=== PATIENT | male | born 1950 | race Caucasian/White ===

== ENCOUNTER 2018-01-20 02:05 | Inpatient (IN) | payer OTHER ==
[~2018-01-20] VITALS: Ht 175.3 cm; Wt 102.1 kg
[~2018-01-20 02:05] MED LIST: AMLODIPINE BESYL5 M1 PO; ATIVAN0.5 M1 PO; HYDROCHLOROTHIA25 M1 PO; LISINOPRIL40 M1 PO; METAMUCIL FIBE3.4 GM; PANTOPRAZOLE SO40 M1 PO; ST. JOSEPH ASPI81 M1 PO; ZOCOR40 M1 PO; ZOLPIDEM TARTRA10 M1 PO
--- NOTE | 2018-01-20 07:59 | Operative Report ---
Operative/Inv Procedure Report Surgery Date: 01/20/18 Name of Procedure: 1. L3, L4 pars osteotomies for deformity correction 2. resection of left L3/4, L4/5 synovial cysts 3. L3/4, L4/5 TLIF with tritanium interbody cages, autograft, ICBM aspirate 4. L3, L4, L5 segmental posterolateral arthrodesis with albertina parham pedicle screws, rods, autograft, ICBM aspirate 5. O-arm navigation 6. right ICBM aspirate Pre-Operative Diagnosis: L3/4, L4/5 spondylolisthesis, stenosis, synovial cysts Post-Operative Diagnosis: same Estimated Blood Loss: 1250cc Surgeon/Floor Representative: Graham CHAMBERLAIN,Manuel Jean-Baptiste MD Anesthesia: general endotracheal tube Monitors: neurophysiologic monitoring IV Fluids: 2L crystalloid, 1L colloid Implants: styker tritanium cages, parham pedicle screws/rods Urine Output: 930cc via malone Drains: med HV Specimens: l3/4, L4/5 synovial cysts, disc material Complications: none Condition: stable Operative Indication: 67yo male with intractable lumbar claudication and imaging c/w spondylolisthesis and stenosis L3/4, L4/5 with left L3/4 synovial cyst now presents for surgical decompression and instrumented fusion after failed conservative treatment. Operative/Procedure Note Note: Patient was taken the operating room. After appropriate patient identification and surgical timeout, neurophysiologic monitoring leads were placed and baseline recordings were obtained. The patient then underwent the smooth induction of general endotracheal anesthesia without incident. Following intubation monitoring was stable. A Malone catheter was sterilely inserted. DVT prophylaxis was utilized throughout the case. Patient was given 2 g of IV kefzol in Preoperative Prophylaxis. With All Tubes and Lines Secured, the Patient Was Carefully Turned to the Prone Position on the Pascual Frame Taking Care to Ensure That All Pressure Points Were Well-Padded. Monitoring Was Stable Following the Turn.The Low Back Was Widely Prepped and Draped Usual Sterile Fashion Using Probe Iodine Solution. A Vertical Midline Skin Incision Was Marked from L3 to L5 and Infiltrated with 10 ML of Local Anesthetic. Skin incision was made with a 10 blade knife. Dissection was carried down through subcutaneous tissue with the Bovie to the lumbodorsal fascia. The fascia was incised and a subperiosteal dissection of the lumbar paravertebral muscles was performed exposing the underlying spinous processes lamina and facets from L3 to L5 bilaterally and self-retaining retractors were placed beneath the muscle. A Essex 4 elevator was placed under the presumed L4 pars and intraoperative lateral lumbar x-rays obtained to confirm the correct level. With the correct level verified, we then proceeded to expose the transverse processes from L3 to L5 were decorticated with a high-speed drill. The joints were noted to be markedly hypertrophic. Syovial cyst off the dorsal medial left L4/5 facet was resected and sent for pathology. We then focused our attention to the decompression. A complete laminectomy from L3 to L5 was completed using a combination of the bone scalpel, small straight and angled curettes and Kerrison rongeurs. Thickened ligamentum flavum was gently elevated and resected allowing excellent decompression of the thecal sac. Synovial cysts off the medial L3/4, L4/5 left facets were carefully resected from the dura and passed off as specimen. Bilateral pars osteotomies were then performed at L3, L4 using combination the bone scalpel and a Kerrison rongeurs and total facetectomies were completed. All bone was saved and passed to the back table for subsequent arthrodesis. Pedicles were skeletonized at L3, L4, L5 , bilaterally and the exiting and traversing roots were widely decompressed on both sides. We then focused our attention to the discectomies. Using a far lateral approach , discectomies were completed at L3/4 and L4/5 from the patient's left side. The dural sac was gently mobilized to the midline, the underlying disc annulus was coagulated with a bipolar and incised in a rectangular fashion with an 11 blade knife and discectomies were completed with small straight and angled curettes pituitary rongeurs disc space cherelle and rasps until all the cartilaginous endplates were removed at both evels. 20 mL of right iliac crest bone marrow aspirate was then taken via a Jamshidi needle and added to the morcellated autograft. We next focused our attention to the interbody arthrodesis. At L4 5, a 11 x 28 x 11 by 6 degree lordotic titanium cage was also selected after appropriate trials and packed with morcellated autograft. Morcellated autograft was packed into the anterior disc space and The L4 5 cage was then gently tamped into the interspace under direct visualization and countersunk by several millimeters and its position also confirmed and noted to be excellent. At L3 4, a 11 x 28 x 11 mm by 6 degree titanium cage was selected and packed with morcellated autograft. autograft were carefully packed into the anterior aspect of the L3 4 disc space followed by the cage was gently tamped into the interspace and countersunk by 2 or 3 mm and its final position confirmed and noted to be excellent. With cages in position, we then proceeded to the posterior lateral arthrodesis. The O arm reference arc was then fixed to the right iliac crest did AP and lateral x-rays were obtained with the O arm followed by a spin. Reconstructions were completed and confirmed. We then used live navigation to place all of the posterior lateral hardware. Prior to placing the pedicle screw instrumentation, bone graft moistened with iliac crest bone marrow aspirate was packed over the transverse processes from L3 to L5 bilaterally. Entry points for 911 [employer] xia3 pedicle screws were selected using the O arm at the junction of the pars interarticularis transverse process and inferomedial aspect of the rostral facet. All screws were placed by piercing the bone with the drill, traversing the pedicle with a gearshift under the hole with a ball- tipped probe, and screw placed with power. We began at L3. 6.5 x 50 mm screw was placed bilaterally. At L4, 6.5 x 50 mm screws were placed bilaterally, at L5, 6.5 x 50 mm screws were placed bilaterally. Once all screws were in position, they were stimulated with thresholds greater than 30 mA at all locations. With all the screws in position, we then obtained a second spin of the O arm and completed the reconstructions to ensure good hardware positioning. All cages were in excellent position. With all screws in position, we then top loaded 60 mm titanium rods bilaterally and locking caps were placed. Screws were then finally tightened using antitorque device. Was copiously irrigated with bacitracin and sterile saline irrigation. Epidural bleeding was controlled using FloSeal, Surgifoam and cottonoid patties and points of muscle bleeding were controlled with the bipolar electrocautery. A medium Hemovac drain was placed into the wound and secured to the skin with a 2- 0 nylon suture. 1 g of vancomycin powder was gently used to cover the cut muscle and soft tissue surfaces in the wound and we then began closure. 10 mL of long-acting local anesthetic was placed in the paraspinal muscle. Deep muscle was reapproximated with interrupted 0 Vicryl suture. Subcutaneous tissue was closed in layers with interrupted oh and 2-0 Vicryl suture. The skin was closed with keiry. The wounds were cleaned and dried. Bacitracin and sterile occlusive dressings were placed. The reference arc was removed from the right iliac crest. That wound was irrigated, closed in layers in the subcutaneous tissue with Vicryl suture and keiry in the skin. It was cleaned and dried and a sterile occlusive dressing was placed. At the completion of the case, all sponge needle and injuring counts were correct at the completion of the procedure 3. Neurophysiologic monitoring was stable throughout the case. Patient was returned to the supine position, awakened extubated and taken to PACU in stable Findings: left L3/4, L4/5 syonvial cysts, hypertrophic facet disease bilaterally Discharge Disposition: PACU
--- NOTE | 2018-01-20 09:56 | RADIOLOGY REPORT ---
EXAMINATION: XR LUMBAR SPINE CLINICAL INFORMATION: L3-L4, 4, 5 PLIF COMPARISON: 11/26/2017 TECHNIQUE: Intraoperative cross table lateral image provided for interpretation FINDINGS: A single crosstable lateral view of the spine demonstrate a metallic instrument pointing at the L4 vertebral body at the level of the inferior pedicle. Radiopaque gauze and skin spreaders are also identified. A rectangular radiopaque marker is also seen at the level of the L3 vertebral body projecting over the spinous processes. IMPRESSION: Linear metallic indicator is at the level of L4. Refer to operative notes for details.
--- NOTE | 2018-01-20 10:15 | RADIOLOGY REPORT ---
EXAMINATION: XR LUMBAR SPINE CLINICAL INFORMATION: L3/L4, 4, 5 TLIF COMPARISON: 11/26/2017 TECHNIQUE: Intraoperative cross table lateral image FINDINGS: A needle indicates the L4 vertebral body level and is interposed between the L3 and L4 spinous processes. There is a coarse radiodensity seen projecting over the spinous process of the L4 vertebral body which appears artifactual. IMPRESSION: 1. Needle indicator is pointing at the L4 vertebral body interposed between the L3 and L4 spinous processes. 2. Coarse radiodensity projects over the spinous process at L4 which appears to be artifactual. This radiodensity was also seen on the second image performed for the same surgery and appears identical in its appearance but changed in where it overlaps with the patient's anatomy, supporting this to be an artifact although this is not a certainty. This was brought to the attention of Dr. Stevenson at 10:10 AM on 01/20/2018.
--- NOTE | 2018-01-20 12:55 | Operative Report ---
Operative/Inv Procedure Report Surgery Date: 01/20/18 Name of Procedure: L34, L45 laminectomies for resection of synovial cysts. L3 4 L4 5 bilateral osteotomies bilateral complete foraminotomies. L3 4 TLIF. L4 5 TLIF. Insertion of L3 4 interbody 11 by 28 mm titanium cage. Insertion of L4 5 11 x 28 mm interbody titanium cage. L3 4 L4 5 posterior lateral arthrodesis utilizing autologous bone graft and iliac crest graft aspirate. L3 4 L4 5 posterior lateral arthrodesis utilizing lexus titanium segmental instrumentation. Stereotactic. Pre-Operative Diagnosis: L3 4 L4 5 synovial cyst degenerative spondylolisthesis spondylosis. Post-Operative Diagnosis: Same Estimated Blood Loss: 2000cc Surgeon/Hydroelectric Systems Technician: Manuel Moya M.D. and Kirsten Stevenson MD Anesthesia: general endotracheal tube Operative/Procedure Note Note: Patient was brought into the operating room and after undergoing endotracheal intubation Estrella catheterization Venodyne's were placed over both lower extremities. The procedure was performed with electrophysiological monitoring with the technicians room throughout the case. The patient was placed prone on an OSI table with all bony prominences well-padded. The back was washed with alcohol and Betadine reprepped again with DuraPrep solution draped in usual sterile fashion. An incision was made in the L3 and the L5 vertebral developed down through the underlying subcutaneous teeniest tissues the paraspinal muscles were mobilized out lateral to the level of the transverse processes. X-ray was used for confirmation. Working with a [employer]'s bone scalpel the L3-L4 and L4- L5 were removed. Care was taken us to peeled the synovial cyst that were present on the left side carefully off the dura 4 and L4 5. The lamina were now opened completely by performing osteotomies at L3 4 and L4 5 bilaterally. The bone harvested was morcellized and used for the arthrodesis. There was a quite a pronounced the epidural bleeding from the plexus of veins which required continuous hemostasis with bipolar cautery. The disc space was entered at the L4 5 with an 11 blade and was removed with a combination of straight and curved rongeurs and straight and curved curettes. The cartilaginous endplates were removed and the bony end plates were partially decorticated. Through separate incision over the iliac crest the iliac crest aspirate was now combined with the autologous bone graft was morcellized and now that mixture was packed into the interspace at the L4 5 level. Additionally bone graft was packed centrally into an 11 x 28 mm titanium cage by Lexus. At cage was tapped across the midline at the L4 5 protect the dura during the process. The L3 4 disc was similarly entered with 11 blade and removed a combination of straight and curved rongeurs and straight and curved curettes. Cartilaginous endplates were partially removed and the bony endplates were decorticated. Bone graft was packed into the interspace at the L3 4 level. The transverse processes at L3-L4 and L5 were now decorticated posterolaterally. Bone graft was packed over the decorticated surfaces been the L3 to the L5 space. A post was placed into the iliac crest and the stereotactic coordinates were obtained utilizing the O arm. Under stereotactic guidance the pedicles were accessed at L3 L4 L5 with Lexus titanium screws 6.5 mm diameter 50 mm in length. Pedicle screws were now stimulated and found to stimulate above 40 mA. Copious amounts of bacitracin irrigation were used. Vancomycin powder was placed in the wound and the paraspinal muscles were closed utilizing interrupted 0 Vicryls. A round drain was placed epidurally and removed through separate stab incision superiorly. The fascia was reapproximated utilizing interrupted 0 Vicryls. 2-0 Vicryl's were utilized for the subcutaneous tissues and keiry for the skin. Patient was taken to the recovery room extubated having tolerated procedure well.
[2018-01-20 15:07] LABS: ABSOLUTE BASOPHIL COUNT 0 /CUMM (0.0-0.2); ABSOLUTE EOSINOPHIL COUNT 0 /CUMM (0.0-0.7); ABSOLUTE GRANULOCYTE CT 10.2 /CUMM (1.4-6.5); ABSOLUTE LYMPH COUNT 0.5 /CUMM (1.2-3.4); ABSOLUTE MONOCYTE COUNT 0.3 /CUMM (0.10-0.60); BASOPHIL % 0 % (0.0-2.0); EOSINOPHIL % 0 % (0-5); GRANULOCYTE % 93.2 % (42.2-75.2); MEAN CORPUSCULAR HGB 31.8 PG (27.0-31.0); MEAN CORPUSCULAR HGB CONC 34.8 G/DL (33.0-37.0); MEAN CORPUSCULAR VOLUME 91.3 FL (80.0-94.0); MEAN PLATELET VOLUME 7.2 FL (7.4-10.4); PLATELET COUNT 258 /CUMM (130-400); RBC DISTRIBUTION WIDTH 12.8 % (11.5-14.5)
--- NOTE | 2018-01-20 15:45 | RADIOLOGY REPORT ---
EXAMINATION: CR LUMBAR SPINE/INTRAOPERATIVE FLUOROSCOPY CLINICAL INDICATION: L3-4 and L4-5 fusion. COMPARISON: Lumbar spine films dated 01/20/2018 and 11/26/2017. TECHNIQUE/FINDINGS: Fluoroscopic O arm equipment was dedicated to the operating room for the performance of an intraoperative procedure. 2 cine fluoroscopy runs were acquired and are archived in PACS. Please refer to operative notes for procedural detail. FLUOROSCOPY TIME: 5.92 seconds. IMPRESSION: Administrative dictation for intraoperative fluoroscopy and image archiving in PACS. Please refer to operative notes for details.
--- NOTE | 2018-01-20 17:12 | PN- Neurosurgical ---
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 Denies nausea denies paresthesias no CP/SOB/GRIFFIN or dizziness Objective Vital Signs and I&Os HR- 110-120's O2 sat 94-96 on room air Physical Exam: gen- NAD resp- clear cardiac- rrr abd-soft, nt ext- distal sensory and motor function intact. 2+ pt pulse bilat back- dressing with minimal drainage. drain in palce with sang drainage. output- 440cc since out of OR Current Medications: Current Medications Sig/Arpan Start time Last Medication Dose Route Stop Time Status Admin Acetaminophen 650 MG Q4P PRN 01/20 1323 AC PO Acetaminophen 1,000 MG .STK-MED ONE 01/20 0659 DC IV 01/20 07 Albumin Human 25 GM .STK-MED ONE 01/20 1149 DC IV 01/20 1150 Albumin Human 25 GM .STK-MED ONE 01/20 1100 DC IV 01/20 1101 Bisacodyl 10 MG DAILY NEEDED PRN 01/20 1323 AC WY Cefazolin Sodium 2 GM IQ8 01/20 1600 AC N/A 1 UNIT IV 01/23 0829 Cefazolin Sodium 2,000 MG ONCE 01/20 0000 NR IV 01/20 2359 Diazepam 5 MG Q8P PRN 01/20 1323 AC PO Docusate Sodium 100 MG TID 01/20 1400 AC PO Fentanyl Citrate 200 MCG .STK-MED ONE 01/20 07 DC IM 01/20 07 Heparin Sodium 5,000 UNIT Q8 01/21 0600 AC (Porcine) SC Hydromorphone HCl 50 MG Q24H PRN 01/20 1330 AC Sodium Chloride 45 ML IV Hydromorphone HCl 2 MG Q4-6 PRN PRN 01/20 1323 AC PO Hydromorphone HCl 2 MG .STK-MED ONE 01/20 0659 DC IM 01/20 07 Ketamine HCl 50 MG .STK-MED ONE 01/20 07 DC IM 01/20 07 Ketorolac 15 MG Q8P PRN 01/20 1323 DC Tromethamine IV 01/25 1322 Ketorolac 15 MG Q6P PRN 01/20 1323 AC Tromethamine IV 01/25 1322 Midazolam HCl 4 MG .STK-MED ONE 01/20 700 DC IM 01/20 701 Ondansetron HCl 4 MG Q6P PRN 01/20 132 AC IV Oxycodone/ 1 TAB Q4P PRN 01/20 1323 AC Acetaminophen PO Oxycodone/ 2 TAB Q4P PRN 01/20 132 AC Acetaminophen PO Remifentanil 5 MG .STK-MED ONE 01/20 700 DC IV 01/20 701 Senna 374 MG 2100 PRN 01/20 132 AC PO Sodium Chloride 1,000 ML Q10H 01/20 132 AC IV 01/21 09 Trimethobenzamide HCl 200 MG Q6P PRN 01/20 132 AC IM Zolpidem Tartrate 2.5 MG AT BEDTIME NEED.. 01/20 1323 AC PO Results Last 48 Hours of Labs: Laboratory Tests 01/20 1500 Hematology CBC w Diff MAN DIFF ORDERED WBC (4.8 - 10.8 /CUMM) 11.0 H RBC (4.70 - 6.10 /CUMM) 3.40 L Hgb (14.0 - 18.0 G/DL) 10.8 L Hct (42 - 52 %) 31.0 L MCV (80.0 - 94.0 FL) 91.3 MCH (27.0 - 31.0 PG) 31.8 H MCHC (33.0 - 37.0 G/DL) 34.8 RDW (11.5 - 14.5 %) 12.8 Plt Count (130 - 400 /CUMM) 258 MPV (7.4 - 10.4 FL) 7.2 L Gran % (42.2 - 75.2 %) 93.2 H Lymphocytes % (20.5 - 51.1 %) 4.4 L Monocytes % (1.7 - 9.3 %) 2.4 Eosinophils % (0 - 5 %) 0 Basophils % (0.0 - 2.0 %) 0 Absolute Granulocytes (1.4 - 6.5 /CUMM) 10.2 H Absolute Lymphocytes (1.2 - 3.4 /CUMM) 0.5 L Absolute Monocytes (0.10 - 0.60 /CUMM) 0.3 Absolute Eosinophils (0.0 - 0.7 /CUMM) 0 Absolute Basophils (0.0 - 0.2 /CUMM) 0 Platelet Estimate (ADEQUATE) ADEQUATE Anisocytosis 1+ Assessment/Plan Assessment/Plan 67yo M SP L3-L5 instumented TLIF pod0. Tachycardic mostly likely due to acute blood loss anemia as intra-op EBL was 1250 and drain output since being is PACU is 440cc. Cont IVF overnight monitor strict I's and O's Follow-up AM crit reg diet regular home meds ABX until hemovac is removed pain management- dilaudid test lead dvt ppx- alps and hsq malone likely to come out in AM Dr. Stevenson agrees with the above plan Core Measures Venous Thromboembolism VTE Risk Factors Surgery No Mechanical VTE Prophylaxis d/t N/A MechProphylax Ordered No VTE Pharm Prophylaxis d/t NA PharmProphylax ordered
[2018-01-20 17:45] VITALS: BP 140/78
[2018-01-20 20:00] VITALS: BP 140/80
[2018-01-20 22:00] VITALS: BP 138/76
[2018-01-20 22:09] VITALS: BP 138/76
[2018-01-20 22:45] VITALS: BP 138/76
[2018-01-21 00:06] VITALS: BP 124/84
[2018-01-21 03:38] VITALS: BP 132/78
--- NOTE | 2018-01-21 07:45 | PN- Neurosurgical ---
Subjective Subjective: No acute overnight events reported. Vital signs noted by myself and Dr. Stevenson. Incisional pain reported, responds to toradol, pt tolerates percocet. No c/o chest pain, shortness of breath and difficulty breathing. No nausea or vomitting. Has malone catheter in place. Objective Vital Signs and I&Os Vital Signs Date Time Temp Pulse Resp B/P B/P Pulse O2 O2 Flow FiO2 Mean Ox Delivery Rate 01/21 0338 98.2 89 20 132/78 96 Room Air 01/21 0006 97.9 89 20 124/84 95 Nasal 2.0L Cannula 01/21 0000 Nasal 2.0L Cannula 01/20 2245 98.7 94 18 138/76 01/20 2209 97.8 94 20 138/76 97 Nasal 2.0L Cannula 01/20 2200 98.7 94 18 138/76 01/20 2125 Nasal 2.0L Cannula 01/21 2000 97.8 110 20 140/80 01/21 2000 97.8 110 18 140/80 97 Nasal 2.0L Cannula 01/20 1745 97.9 112 18 140/78 01/20 1732 Nasal 3.0L Cannula Intake & Output 01/21 0800 01/21 0000 01/20 1600 01/20 0800 01/20 0000 01/19 1600 Intake Total 1040 760 Output Total 410 540 Balance 630 220 Intake, IV 800 400 Intake, Oral 240 360 Output, 160 190 Drainage Output, Urine 250 350 Patient 225 lb Weight Weight Reported by Patient Measurement Method Physical Exam: General: Alert and oriented x3, no acute distress Cards: Sinus tach Pulm: C T A bialterally, non-labored respiratory effort Abd: Non-tender, non-distended Extremities: Moves all extremities, neurovascular status grossly intact. 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 Stevenson Core Measures Venous Thromboembolism VTE Risk Factors Surgery No Mechanical VTE Prophylaxis d/t N/A MechProphylax Ordered No VTE Pharm Prophylaxis d/t NA PharmProphylax ordered
[2018-01-21 08:39] LABS: ABSOLUTE BASOPHIL COUNT 0 /CUMM (0.0-0.2); ABSOLUTE EOSINOPHIL COUNT 0 /CUMM (0.0-0.7); ABSOLUTE GRANULOCYTE CT 7.5 /CUMM (1.4-6.5); ABSOLUTE LYMPH COUNT 1.2 /CUMM (1.2-3.4); ABSOLUTE MONOCYTE COUNT 0.8 /CUMM (0.10-0.60); BASOPHIL % 0.3 % (0.0-2.0); EOSINOPHIL % 0.1 % (0-5); GRANULOCYTE % 78.8 % (42.2-75.2); MEAN CORPUSCULAR HGB 32.1 PG (27.0-31.0); MEAN CORPUSCULAR HGB CONC 34.8 G/DL (33.0-37.0); MEAN CORPUSCULAR VOLUME 92.2 FL (80.0-94.0); MEAN PLATELET VOLUME 7.7 FL (7.4-10.4); PLATELET COUNT 224 /CUMM (130-400); RED BLOOD CELL CT 2.72 /CUMM (4.70-6.10); WHITE BLOOD CELL COUNT 9.5 /CUMM (4.8-10.8)
[2018-01-21 09:15] LABS: HEMATOCRIT 25.1 % (42-52)
[2018-01-21 12:36] VITALS: BP 130/85
--- NOTE | 2018-01-21 12:58 | Admission Core Measures ---
Acute Coronary Syndrome (CM) ACS Core Measures Acute Coronary Syndrome Diagnosis No Congestive Heart Failure (NEW) CHF Core Measures Congestive Heart Failure Diagnosis No Cerebrovascular Accident CVA Core Measures CVA/TIA Diagnosis No Venous Thromboembolism VTE Core Carlo (View Protocol) VTE Risk Factors Surgery No Mechanical VTE Prophylaxis d/t N/A MechProphylax Ordered No VTE Pharm Prophylaxis d/t NA PharmProphylax ordered Problem List As ranked by this Provider includes Assessment & Plan 1. Spondylolisthesis of lumbar region 2. Spinal stenosis of lumbar region HOME MEDS Home Med List Amlodipine Besylate 5 MG TABLET 1 TAB PO DAILY BP (Reported) Aspirin ([place] Aspirin) 81 MG TABLET.DR 1 TAB PO DAILY HEART HEALTH ( Reported) Hydrochlorothiazide 25 MG TABLET 1 TAB PO DAILY BP (Reported) Lisinopril 40 MG TABLET 1 TAB PO DAILY BP (Reported) Lorazepam (Ativan) 0.5 MG TABLET 1 TAB PO DAILY NEEDED ANXIETY (Reported) Pantoprazole Sodium 40 MG TABLET.DR 1 TAB PO DAILY GERD (Reported) Simvastatin (Zocor*) 40 MG TABLET 1 TAB PO DAILY CHOLESTEROL (Reported) Zolpidem Tartrate 10 MG TABLET 1 TAB PO QPMP SLEEP (Reported)
--- NOTE | 2018-01-21 13:05 | Surgical Discharge Summary ---
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 Home Who Do You Live With? Spouse What is Your Primary Language? Estonian Review of Systems: see hpi Hospital Course Course Attending Physician: Graham CHAMBERLAIN,Kirsten Montes Primary Care Physician: Cinthia CHAMBERLAIN,Selvin Grissom Hospital Course: Name of Procedure: 1. L3, L4 pars osteotomies for deformity correction 2. resection of left L3/4, L4/5 synovial cysts 3. L3/4, L4/5 TLIF with tritanium interbody cages, autograft, ICBM aspirate 4. L3, L4, L5 segmental posterolateral arthrodesis with albertina parham pedicle screws, rods, autograft, ICBM aspirate 5. O-arm navigation 6. right ICBM aspirate Pre-Operative Diagnosis: L3/4, L4/5 spondylolisthesis, stenosis, synovial cysts Patient underwent the above-mentioned procedure without complications. Postoperatively he suffered from mild acute blood loss anemia but did not become symptomatic and did not require transfusion. His pain was controlled first with MANAGER PACKAGE and then switched over to oral pain medication. His postoperative course was uneventful. He performed well with physical therapy, his pain was well controlled, his vital signs are stable and he is afebrile, his wound is without signs of infection and his drain was removed postoperatively. He voided spontaneously, he was neurovascular intact postoperatively, he was discharged home in stable condition having tolerated the procedure well without complications. Complications: acute blood loss anemia Allergies: Coded Allergies: No Known Allergies (01/16/18) PER PRE-OP ORDER SHEET FROM [facility]. - 01/16/18 Significant Procedures: see above Disposition Summary Disposition Principal Diagnosis: L3/4, L4/5 spondylolisthesis, stenosis, synovial cysts sp L3/4, L4/5 TLIF with tritanium interbody cages, autograft Additional Diagnosis: acute blood loss anemia Discharge Disposition: home health services Discharge Instructions General Discharge Information Code Status: Full Code Patient's Diet: regular diet Patient's Activity: Back brace on when out of bed. No bending lifting or twisting Pain medication as needed Follow-Up Instructions/Appts: With Dr. Stevenson in 1-2 weeks Medications at Discharge Discharge Medications: Continue taking these medications: Aspirin ([place] Aspirin) 81 MG TABLET.DR 1 Tablet ORAL DAILY Pantoprazole Sodium (Pantoprazole Sodium) 40 MG TABLET.DR 1 Tablet ORAL DAILY Amlodipine Besylate (Amlodipine Besylate) 5 MG TABLET 1 Tablet ORAL DAILY Lisinopril (Lisinopril) 40 MG TABLET 1 Tablet ORAL DAILY Hydrochlorothiazide (Hydrochlorothiazide) 25 MG TABLET 1 Tablet ORAL DAILY Simvastatin (Zocor*) 40 MG TABLET 1 Tablet ORAL DAILY Zolpidem Tartrate (Zolpidem Tartrate) 10 MG TABLET 1 Tablet ORAL Every night as needed Lorazepam (Ativan) 0.5 MG TABLET 1 Tablet ORAL DAILY NEEDED Psyllium Hydrophy Sugar Free (Metamucil Fiber Singles Packet) 3.4 GRAM POWD.PACK as needed for CONSTIPATION Start taking the following new medications: Oxycodone HCl (Oxycodone HCl) 5 MG TABLET 1-2 Tablet ORAL EVERY 4 HOURS NEEDED as needed for PAIN SCALE 4-6 ( MODERATE) Qty = 36 No Refills Diazepam (Diazepam) 5 MG TABLET 1 Tablet ORAL EVERY 8 HOURS NEEDED as needed for SPASM Qty = 30 No Refills Docusate Sodium (Docusate Sodium) 100 MG CAPSULE 1 Tablet ORAL TWICE DAILY Qty = 60 No Refills Acetaminophen (Acetaminophen) 500 MG TABLET 1 Tablet ORAL EVERY SIX HOURS Qty = 60 No Refills
--- NOTE | 2018-01-21 13:09 | Patient Discharge Instructions ---
Discharge Instructions General Discharge Information You were seen/treated for: Lumbar spinal stenosis and spondylolisthesis. You had these procedures: Status post L3/4, L4/5 TLIF with tritanium interbody cages, autograft Watch for these problems: Worsening pain, drainage from the wound, redness about the wound, pain or weakness in the legs, numbness in the legs, fever, flulike illness Call Surgeon to remove: Karen, 1-2 weeks Do not soak the wound: Yes No bath, but you may shower: Yes Other wound care: Dry dressing every day or every other day. Special Instructions: Avoid excessive bending lifting and twisting. Use the back brace when you are out of bed at all times. No lifting greater than 5 pounds. No straining Take pain medication as needed. Call the office if you require more medication Take stool softeners as directed Diet Continue normal diet: Yes Activity Full Activity/No Limits: No Pounds, do NOT lift more than: 5 Acute Coronary Syndrome Inclusion Criteria At DC or during hospital stay patient has or had the following: ACS DIAGNOSIS No Discharge Core Measures Meds if any: Prescribed or Continued at Discharge Meds if any: NOT Prescribed or Continued at Discharge Congestive Heart Failure Inclusion Criteria At DC or during hospital stay patient has or had the following: CHF DIAGNOSIS No Discharge Core Measures Meds if any: Prescribed or Continued at Discharge Meds if any: NOT Prescribed or Continued at Discharge Cerebrovascular accident Inclusion Criteria At DC or during hospital stay patient has or had the following: CVA/TIA Diagnosis No Discharge Core Measures Meds if any: Prescribed or Continued at Discharge Meds if any: NOT Prescribed or Continued at Discharge Venous thromboembolism Inclusion Criteria VTE Diagnosis No VTE Type NONE VTE Confirmed by (Test) NONE Discharge Core Measures - Per Current guidelines, there needs to be overlap - treatment for the first 5 days of Warfarin therapy. - If discharged on Warfarin prior to 5 days of - overlap therapy, the patient will need to be - assessed for post discharge needs including - *Post discharge parental anticoagulation - *Warfarin and/or parental anticoagulation education - *Follow up date to check INR post discharge At least 5 days overlap therapy as Inpatient No Meds if any: Prescribed or Continued at Discharge Note: Overlap Therapy is Warfarin and Anticoagulant Meds if any: NOT Prescribed or Continued at Discharge
[2018-01-21 15:57] VITALS: BP 130/76
[2018-01-21 20:14] VITALS: BP 140/70
[2018-01-21 23:36] VITALS: BP 156/74
[2018-01-22 05:04] VITALS: BP 138/82
--- NOTE | 2018-01-22 07:29 | PN- Neurosurgical ---
Subjective Subjective: Pt with incisional LBP over night, denies N/T/W, no SOB, light headedness or other concerns Objective Vital Signs and I&Os Vital Signs Date Time Temp Pulse Resp B/P B/P Pulse O2 O2 Flow FiO2 Mean Ox Delivery Rate 01/22 0504 98.7 92 20 138/82 96 Room Air 01/21 2336 98.8 100 22 156/74 97 Room Air 01/21 2014 98.6 102 18 140/70 96 01/21 1557 98.6 94 18 130/76 99 01/21 1236 97.7 94 20 130/85 97 Room Air Intake & Output 01/22 0801/22 0000 01/21 1600 01/21 0801/21 0000 01/20 1600 Intake Total 1040 760 Output Total 410 1380 600 410 540 Balance -410 -1380 -600 630 220 Intake, IV 800 400 Intake, Oral 240 360 Number 0 0 Bowel Movements Output, 110 180 160 190 Drainage Output, Urine 300 1200 600 250 350 Patient 102.058 kg Weight Weight Reported by Patient Measurement Method Physical Exam: Pt AF, VSS awake and alert, sitting in chair neuro intact sri po, voiding on own ambulating in room using IS to 2.5L incision with min stable serosanguinous stain on dressing, HV with 110cc out last shift Current Medications: Current Medications Sig/Arpan Start time Last Medication Dose Route Stop Time Status Admin Acetaminophen 650 MG Q4P PRN 01/20 1323 AC PO Bisacodyl 10 MG DAILY NEEDED PRN 01/20 1323 AC SC Cefazolin Sodium 2 GM Q8H 01/21 0500 AC 01/22 N/A 1 UNIT IV 01/23 1329 0542 Diazepam 5 MG Q8P PRN 01/20 1323 AC 01/22 PO 0022 Docusate Sodium 100 MG TID 01/20 1400 AC 01/21 PO 2036 Ferrous Sulfate 325 MG BID 01/21 2100 AC 01/21 PO 2036 Heparin Sodium 5,000 UNIT Q8 01/21 06 AC 01/22 (Porcine) SC 0542 Hydromorphone HCl 1 MG Q2-3 HRS NEEDED.. 01/20 2230 AC 01/21 IV 0353 Hydromorphone HCl 0.5 MG Q2-3 HRS NEEDED.. 01/20 2230 AC 01/21 IV 2014 Ketorolac 15 MG Q8 01/21 0600 AC 01/22 Tromethamine IV 01/22 1401 0542 Omeprazole 40 MG DAILY AC 01/21 1215 AC 01/22 PO 0541 Ondansetron HCl 4 MG Q6P PRN 01/20 1323 AC IV Oxycodone/ 1 TAB Q4P PRN 01/21 0730 AC Acetaminophen PO Oxycodone/ 2 TAB Q4P PRN 01/21 0730 AC 01/22 Acetaminophen PO 0303 Patient Medication 1 ED ONE ONE 01/21 1230 DC Teaching ED 01/21 1231 Polyethylene Glycol 17 GM DAILY 01/21 1211 AC 01/21 PO 1317 Senna 374 MG 2100 PRN 01/20 1323 AC 01/22 PO 0543 Sodium Chloride 1,000 ML Q10H 01/20 1323 DC 01/21 IV 01/21 0922 0949 Trimethobenzamide HCl 200 MG Q6P PRN 01/20 1323 AC IM Zolpidem Tartrate 2.5 MG AT BEDTIME NEED.. 01/20 1323 AC PO Results Last 48 Hours of Labs: Laboratory Tests 01/21 01/20 0725 1500 Hematology CBC w Diff NO MAN DIFF REQ MAN DIFF ORDERED WBC (4.8 - 10.8 /CUMM) 9.5 11.0 H RBC (4.70 - 6.10 /CUMM) 2.72 L 3.40 L Hgb (14.0 - 18.0 G/DL) 8.7 L 10.8 L Hct (42 - 52 %) 25.1 L 31.0 L MCV (80.0 - 94.0 FL) 92.2 91.3 MCH (27.0 - 31.0 PG) 32.1 H 31.8 H MCHC (33.0 - 37.0 G/DL) 34.8 34.8 RDW (11.5 - 14.5 %) 13.0 12.8 Plt Count (130 - 400 /CUMM) 224 258 MPV (7.4 - 10.4 FL) 7.7 7.2 L Gran % (42.2 - 75.2 %) 78.8 H 93.2 H Lymphocytes % (20.5 - 51.1 %) 12.8 L 4.4 L Monocytes % (1.7 - 9.3 %) 8.0 2.4 Eosinophils % (0 - 5 %) 0.1 0 Basophils % (0.0 - 2.0 %) 0.3 0 Absolute Granulocytes (1.4 - 6.5 /CUMM) 7.5 H 10.2 H Absolute Lymphocytes (1.2 - 3.4 /CUMM) 1.2 0.5 L Absolute Monocytes (0.10 - 0.60 /CUMM) 0.8 H 0.3 Absolute Eosinophils (0.0 - 0.7 /CUMM) 0 0 Absolute Basophils (0.0 - 0.2 /CUMM) 0 0 Platelet Estimate (ADEQUATE) ADEQUATE Anisocytosis 1+ Assessment/Plan Assessment/Plan Pt POD2 s/p L3/4, L4/5 TLIF and doing well. Neurologically stable. Plan: -OOB with brace -PT -cont HV until less than 50cc per shift, abx until drain out -percocet alternating with muscle relaxer prn -DVT prophylaxis Core Measures Venous Thromboembolism VTE Risk Factors Surgery No Mechanical VTE Prophylaxis d/t N/A MechProphylax Ordered No VTE Pharm Prophylaxis d/t NA PharmProphylax ordered Attending MD Review Statement Attending Statement Attending MD Statement: examined this patient, discuss w/resident/PA/FABRICATION TECHNICIAN
[2018-01-22 14:32] VITALS: BP 137/75
[2018-01-22 18:31] VITALS: BP 140/70
[2018-01-22 22:14] VITALS: BP 148/90
[2018-01-23 06:30] VITALS: BP 150/84
[2018-01-23] MEDS ORDERED: DOCUSATE SODIU100 M3 PO (13:31)
[2018-01-23] MEDS ORDERED: OXYCODONE HCL5 M1 PO (13:31)
[2018-01-23] MEDS ORDERED: DIAZEPAM5 M1 PO (13:31)
[2018-01-23] MEDS ORDERED: ACETAMINOPHEN500 M4 PO (13:35)
[2018-01-23 14:37] VITALS: BP 140/80
== END 2018-01-23 16:45 | disposition home health service (06) | DRG 460 ==
LOC: SDA 02:05 → ENRESERV 13:20 → ENTRNSPT 16:56 → EDTRNSPT 17:26 → EDTRNSPTSTS 17:26 → 2NA 17:30 → CMPTRNSPT 17:38 → ENPENDDIS 01-23 13:46 → 2NA 01-23 16:45
PROVIDERS: Neurological Surgery; Physician Assistant Surgical
PROC: 01NB0ZZ Release Lumbar Nerve, Open Approach (ICD-10-PCS; principal; 2018-01-20)
PROC: 0SG107J Fusion of 2 or more Lumbar Vertebral Joints with Autologous Tissue Substitute, Posterior Approach, Anterior Column, Open Approach (ICD-10-PCS; principal; 2018-01-20)
PROC: 0SB20ZZ Excision of Lumbar Vertebral Disc, Open Approach (ICD-10-PCS; principal; 2018-01-20)
PROC: 0SG10AJ Fusion of 2 or more Lumbar Vertebral Joints with Interbody Fusion Device, Posterior Approach, Anterior Column, Open Approach (ICD-10-PCS; principal; 2018-01-20)
PROC: 0QB23ZZ Excision of Right Pelvic Bone, Percutaneous Approach (ICD-10-PCS; principal; 2018-01-20)
DX: M48.062 Spinal stenosis, lumbar region with neurogenic claudication (principal); D62 Acute posthemorrhagic anemia; M43.16 Spondylolisthesis, lumbar region; M71.38 Other bursal cyst, other site; R00.0 Tachycardia, unspecified; I10 Essential (primary) hypertension; E78.5 Hyperlipidemia, unspecified; K21.9 Gastro-esophageal reflux disease without esophagitis; Z90.49 Acquired absence of other specified parts of digestive tract; F17.290 Nicotine dependence, other tobacco product, uncomplicated; E66.9 Obesity, unspecified; Z68.33 Body mass index [BMI] 33.0-33.9, adult
CPT/HCPCS: 2NAP; 36415; 36592; 72020; 72100; 87086; 88304; C1713; C9290; J0131; J0690; J1170; J1630; J1644; J2405; J3250; J3370; J3490; P9041